=== PATIENT | female | born 1990 | race Caucasian/White ===

== ENCOUNTER 2017-04-19 13:59 | Emergency (ER) | payer BC, OTHER ==
[~2017-04-19] VITALS: Ht 162.6 cm; Wt 114.7 kg
[2017-04-19 15:20] LABS: HEMOGLOBIN 12.1 G/DL (11.9-15.5); MCH 26.5 PG (29.0-34.0); MCHC 32.7 G/DL (30.0-36.0); MCV 81.1 FL (83-99); PLATELET COUNT 236 K/uL (156-360); RBC DIS.WIDTH-SD 37.6 % (39-53); RED BLOOD COUNT 4.56 M/uL (3.80-5.20)
[2017-04-19 15:29] LABS: CHLORIDE 106 mEq/L (99-109); POTASSIUM 3.8 mEq/L (3.7-5.4); SODIUM 137 mEq/L (136-147)
[2017-04-19 15:30] LABS: GLUCOSE 86 mg/dL (70-99)
[2017-04-19 15:34] LABS: CREATININE 0.6 mg/dL (0.6-1.3)
[2017-04-19 15:35] LABS: UREA NITROGEN (BUN) 6 mg/dL (9-23)
[2017-04-19 15:37] LABS: GFR ESTIMATE (CALCULATED) > 59 mL/min/
[2017-04-19 15:54] LABS: APPEARANCE CLOUDY ((CLEAR)); BILIRUBIN NEGATIVE; BLOOD NEGATIVE; COLOR YELLOW ((YELLOW)); GLUCOSE (STRIP) NEGATIVE; KETONES 5; LEUKOCYTES NEGATIVE; NITRITE NEGATIVE; PROTEIN (STRIP) NEGATIVE; SPECIFIC GRAVITY 1.019 (1.000-1.030)
[2017-04-19 16:05] LABS: BACTERIA RARE /HPF; EPITHELIAL CELLS 1+ /HPF; MUCUS TRACE /LPF; UCUL ADDED? YES
[2017-04-19 18:12] VITALS: BP 104/45
== END 2017-04-19 18:13 | disposition home or self-care (01) ==
LOC: EME 13:59
PROVIDERS: Physician Assistant
DX: O99.89 Other specified diseases and conditions complicating pregnancy, childbirth and the puerperium (principal); R55 Syncope and collapse; S16.1XXA Strain of muscle, fascia and tendon at neck level, initial encounter; W22.09XA Striking against other stationary object, initial encounter; Y92.009 Unspecified place in unspecified non-institutional (private) residence as the place of occurrence of the external cause; Z3A.17 17 weeks gestation of pregnancy; O99.342 Other mental disorders complicating pregnancy, second trimester; F32.9 Major depressive disorder, single episode, unspecified; F41.9 Anxiety disorder, unspecified; Z88.2 Allergy status to sulfonamides
CPT/HCPCS: 80048; 81003; 85027; 87086; 87502; 93005; 99281; 99284; J7030